=== PATIENT | male | born 1965 ===

== ENCOUNTER 2020-07-25 13:51 | Outpatient (CLI) | payer MEDICAID ==
[2020-07-25 14:14] VITALS: BP 138/87
[2020-07-25] MEDS ORDERED: GABAPENTIN100 MG ORAL (14:15)
--- NOTE | 2020-07-26 08:00 | Consultation ---
DATE OF CONSULTATION: 07/25/2020 GASTROENTEROLOGY CONSULTATION CONSULTING PHYSICIAN: Arnaldo Woodward MD. CHIEF COMPLAINT: Referral for stool OB positive. PAST MEDICAL HISTORY: Headache. PAST SURGICAL HISTORY: None. MEDICATIONS: Please see medication reconciliation list. FAMILY HISTORY: Noncontributory. SOCIAL HISTORY: The patient denies any tobacco, alcohol, or drug abuse. ALLERGIES: No known drug allergies. REVIEW OF SYSTEMS: Positive for GERD and rectal bleeding. PHYSICAL EXAMINATION: VITAL SIGNS: Temperature 97.5, blood pressure 138/87, pulse 80, respirations 20. HEENT: Normocephalic and atraumatic. Sclerae are anicteric. NECK: Supple. No evidence of obvious lymphadenopathy. CARDIOVASCULAR: Regular rate and rhythm. Plus S1, S2. LUNGS: Clear to auscultation bilaterally. ABDOMEN: Positive bowel sounds. Soft and nontender. No rebound. No guarding. No peritoneal sign. EXTREMITIES: No cyanosis, no clubbing, no edema. ASSESSMENT AND PLAN: This is a 54-year-old patient with stool OB positive. No prior history of endoscopy and colonoscopy, needs both. Plan to schedule when authorization is obtained. Arnaldo Woodward M.D. DR: HOWARD JOB#: [id number] CC:
== END 2020-07-25 15:51 | disposition home or self-care (01) ==
LOC: PAN 13:51
DX: K21.9 Gastro-esophageal reflux disease without esophagitis (principal); K62.5 Hemorrhage of anus and rectum